=== PATIENT | male | born 1995 | race Caucasian/White ===

== ENCOUNTER 2021-09-17 21:30 | Emergency (ER) | payer SELFPAY ==
[2021-09-17] MEDS ORDERED: Sodium Chloride 0.9% 2,000 ML ONE (21:59)
[2021-09-17] MEDS ORDERED: Sodium Chloride 0.9% 1,000 ML IRR SCH ×2 (22:15)
[2021-09-17] MEDS ORDERED: Sodium Chloride 0.9% 1,000 ML IRR ONE ×2 (22:16→22:17)
[2021-09-17] MEDS ORDERED: Proparacaine 0.5% Ophth Soln 15 ML Bottle EYEBOTH STA (23:07)
[2021-09-17] MEDS ORDERED: Fluorescein 1 MG Ophth Strip EYEBOTH STA (23:07)
[2021-09-17] MEDS ORDERED: Erythromycin Base 0.5% Ophth Oint 1 GM Tube EYELF STA (23:22)
[2021-09-17] MEDS ORDERED: Erythromycin Base 0.5% Ophth Oint 1 GM Tube EYERT STA (23:23)
== END 2021-09-17 23:42 | disposition home or self-care (01) ==
LOC: JD.ED 21:30
DX: S05.01XA Injury of conjunctiva and corneal abrasion without foreign body, right eye, initial encounter (principal); S05.02XA Injury of conjunctiva and corneal abrasion without foreign body, left eye, initial encounter; E66.9 Obesity, unspecified; Z68.39 Body mass index [BMI] 39.0-39.9, adult; X58.XXXA Exposure to other specified factors, initial encounter
CPT/HCPCS: 99283; A9270